=== PATIENT | male | born 1985 | race Caucasian/White ===

== ENCOUNTER 2022-07-15 06:13 | Emergency (ER) | payer MEDICAID ==
[~2022-07-15 06:13] MED LIST: CLON-529 PO; NO HOME MEDS
[2022-07-16] MEDS ORDERED: NEOM10SO7 TOP (10:40)
[2022-07-16] MEDS ORDERED: AMOX-115 PO (10:40)
[2022-07-16] MEDS ORDERED: HYDR-3965 PO (10:40)
[2022-07-16] MEDS ORDERED: ACET-1025 PO (10:40)
== END 2022-07-15 06:40 | disposition left against medical advice (07) ==
LOC: ER 06:14
DX: H92.09 Otalgia, unspecified ear (principal); Z53.21 Procedure and treatment not carried out due to patient leaving prior to being seen by health care provider

== ENCOUNTER 2022-07-15 19:28 | Emergency (ER) | payer MEDICAID ==
[~2022-07-15] VITALS: Ht 185.4 cm; Wt 105.3 kg
[2022-07-15 19:36] VITALS: BP 146/91
[2022-07-16] MEDS ORDERED: AMOX-115 PO (10:40)
[2022-07-16] MEDS ORDERED: ACET-1025 PO (10:40)
[2022-07-16] MEDS ORDERED: NEOM10SO7 TOP (10:40)
[2022-07-16] MEDS ORDERED: HYDR-3965 PO (10:40)
== END 2022-07-15 23:20 | disposition left against medical advice (07) ==
LOC: ER 19:29
DX: H92.02 Otalgia, left ear (principal); Z53.21 Procedure and treatment not carried out due to patient leaving prior to being seen by health care provider

== ENCOUNTER 2022-07-16 07:54 | Emergency (ER) | payer MEDICAID ==
[~2022-07-16] VITALS: Ht 185.4 cm; Wt 104.0 kg
[2022-07-16 08:04] VITALS: BP 139/94
[2022-07-16] MEDS ORDERED: HYDR-3965 PO (10:40)
[2022-07-16] MEDS ORDERED: AMOX-115 PO (10:40)
[2022-07-16] MEDS ORDERED: NEOM10SO7 TOP (10:40)
[2022-07-16] MEDS ORDERED: ACET-1025 PO (10:40)
== END 2022-07-16 11:03 | disposition home or self-care (01) ==
LOC: ER 07:54
DX: H60.93 Unspecified otitis externa, bilateral (principal); H66.93 Otitis media, unspecified, bilateral; J44.9 Chronic obstructive pulmonary disease, unspecified; F15.10 Other stimulant abuse, uncomplicated; Z79.899 Other long term (current) drug therapy
CPT/HCPCS: 99283